=== PATIENT | female | born 1965 | race Caucasian/White ===

== ENCOUNTER 2019-10-16 20:26 | Emergency (ER) | payer SELFPAY ==
[~2019-10-16] VITALS: Ht 175.3 cm; Wt 85.7 kg
[2019-10-16 20:42] VITALS: Ht 175.3 cm; Wt 85.7 kg
[2019-10-16] MEDS ORDERED: ADDERALL 20 MG20 M1 PO (20:43)
[2019-10-16] MEDS ORDERED: TORADOL10 MG PO (22:32)
[2019-10-16 23:00] VITALS: BP 132/87
== END 2019-10-16 23:00 | disposition home or self-care (01) ==
LOC: D.ER 20:26
DX: S40.011A Contusion of right shoulder, initial encounter (principal); W19.XXXA Unspecified fall, initial encounter; Y93.9 Activity, unspecified; Y92.9 Unspecified place or not applicable; M79.601 Pain in right arm